=== PATIENT | male | born 1975 | race African-American/Black ===

== ENCOUNTER 2019-03-31 14:04 | Emergency (ER) | payer SELFPAY ==
[~2019-03-31] VITALS: Ht 172.7 cm; Wt 66.7 kg
[2019-03-31] MEDS ORDERED: LIDOCAINE PF 1% 5 ML (XYLOCAINE) AMP ONE (15:17)
[2019-03-31] MEDS ORDERED: BUPIVACAINE 0.5% 30 ML (SENSORCAINE) VIAL ONE (15:17)
--- NOTE | 2019-03-31 15:22 | Diagnostic Imaging Report ---
Indication: Left hand injury. COMPARISON: None. EXAMINATION: Three views of the left hand were obtained. FINDINGS: Nondisplaced angulated fracture of the distal 5th metacarpal. There is no intra-articular involvement. Soft tissue swelling is seen. No additional abnormality is seen. No foreign body. IMPRESSION: Distal 5th metacarpal fracture. Dictated by: Dictated on workstation # [id number]
[2019-03-31] MEDS ORDERED: HYDR-4226 PO (15:29)
[2019-03-31] MEDS ORDERED: LIDOCAINE 1% INJ 20 ML 20 ML VIAL INJ ONE (15:30)
[2019-03-31] MEDS ORDERED: BUPIVACAINE 0.5% 30 ML (SENSORCAINE) VIAL INJ ONE (15:30)
--- NOTE | 2019-03-31 15:30 | ED Upper Extremity ---
General Chief Complaint: Upper Extremity Stated Complaint: L HAND INJ Nursing Triage Note: PT AMBULATE TO [facility] WITH C/O LEFT HAND INJURY. PT STATES HE WAS WALKING UP STAIRS AND STUMBLED AND HIT HAND ON RAILING. PT REPORTS HE DID NOT HIT HIS HEAD. Nursing Sepsis Screen: No Definite Risk Source: patient Exam Limitations: no limitations History of Present Illness Date Seen by Provider: Mar 31, 2019 Time Seen by Provider: 14:00 Initial Comments To ER with left hand pain. This is over the knuckle. He fell while walking up the stairs. Onset: just prior to arrival Severity: moderate Pain/Injury Location: left 5th finger Method of Injury: fell Modifying Factors: Worse With Movement Allergies and Home Medications Allergies Coded Allergies: No Known Drug Allergies (Unverified , 03/31/19) Home Medications Hydrocodone/Acetaminophen 1 Each Tablet, 1 TAB PO Q4-6HR Prescribed by: KIRT LEONARD on 03/31/19 1529 Patient Home Medication List Home Medication List Reviewed: Yes Review of Systems Constitutional: see HPI EENTM: see HPI Respiratory: no symptoms reported Cardiovascular: no symptoms reported Genitourinary: no symptoms reported Musculoskeletal: see HPI Skin: no symptoms reported Psychiatric/Neurological: No Symptoms Reported Past Lzjlqct-Dwmzus-Wlsxzg Hx Patient Social History Alcohol Use: Regular Use Alcohol Beverage of Choice: Beer Recreational Drug Use: Yes Drug of Choice: POT Smoking Status: Current Everyday Smoker Type Used: Cigarettes 2nd Hand Smoke Exposure: Yes Recent Foreign Travel: No Contact w/Someone Who Travel: No Recent Infectious Disease Expo: No Recent Hopitalizations: No Physical Abuse: No Sexual Abuse: No Mistreated: No Fear: No Seasonal Allergies Seasonal Allergies: Yes Past Medical History Surgeries: Yes (BROKEN JAW) Respiratory: No Cardiac: No Neurological: No Genitourinary: No Gastrointestinal: No Musculoskeletal: Yes (BROKEN JAW) Fractures Endocrine: No HEENT: No Cancer: No Psychosocial: No Integumentary: Yes Eczema Blood Disorders: No Physical Exam Vital Signs Vital Signs - First Documented 03/31/19 03/31/19 14:08 16:15 Temp 37.1 Pulse 119 Resp 19 B/P (MAP) 135/90 (105) Pulse Ox 99 O2 Delivery Room Air Capillary Refill : Less Than 3 Seconds Height, Weight, BMI Height: '" Weight: lbs. oz. kg; 22.00 BMI Method: General Appearance: WD/WN, no apparent distress Respiratory: no respiratory distress, no accessory muscle use Shoulder: normal inspection, non-tender Elbow/Forearm: normal inspection, non-tender Wrist: Yes normal inspection, Yes non-tender Hand: Left, swelling Neurologic/Tendon: normal sensation, normal motor functions Neurologic/Psychiatric: alert, normal mood/affect, oriented x 3 Skin: normal color, warm/dry Progress/Results/Core Measures Results/Orders My Orders Orders - KIRT LEONARD APRN Hand, Left, 3 Views (03/31/19 14:19) Lidocaine 1% Inj 20 Ml (Xylocaine 1% Inj (03/31/19 15:30) Bupivacaine 0.5% Injection (Sensorcaine (03/31/19 15:30) Hand, Left, 2 Views (03/31/19 15:16) Bupivacaine 0.5% Injection (Sensorcaine (03/31/19 15:17) Lidocaine Pf 1% 5 Ml Injection (Xylocain (03/31/19 15:17) Hand, Left, 2 Views (03/31/19 15:59) Medications Given in ED Current Medications Medications Dose Ordered Sig/Ayush Route Start Time Stop Time Status Last Admin Dose Admin Bupivacaine HCl 3 ml ONCE ONCE INJ 03/31/19 15:30 03/31/19 15:31 DC 03/31/19 15:34 3 ML Lidocaine HCl 2 ml ONCE ONCE INJ 03/31/19 15:30 03/31/19 15:31 DC 03/31/19 15:34 2 ML Vital Signs/I&O 03/31/19 03/31/19 14:08 16:15 Temp 37.1 Pulse 119 81 Resp 19 B/P (MAP) 135/90 (105) 133/79 Pulse Ox 99 O2 Delivery Room Air Room Air Blood Pressure Mean: 105 POS Departure Communication (Admissions) Did a hematoma block with 2 mL of 1% lidocaine without epinephrine and 3 L of 0.5% bupivacaine without epinephrine. Impression Primary Impression: Metacarpal bone fracture Qualified Codes: S62.307A - Unspecified fracture of fifth metacarpal bone, left hand, initial encounter for closed fracture Disposition: 01 HOME, SELF-CARE Condition: Stable Departure-Patient Inst. Decision time for Depature: 15:28 Referrals: USAMA CURTIS,LOCAL PHYSICIAN (PCP) Primary Care Physician BANGJOSIAS ROBERTS MD, ROBERT F DO ZAFUTA, MICHAEL P MD Patient Instructions: Hand Fracture Add. Discharge Instructions: 1. Return to ER for any concerns 2. Follow-up with your doctor next week 3. Follow-up with one of the orthopedic surgeons listed. Call Monday to make an appointment to be seen within the next 2 or 3 weeks. Leave the splint on at all times until then. All discharge instructions reviewed with patient and/or famil y. Voiced understanding. Scripts Hydrocodone/Acetaminophen ([place] 5-325 Tablet) 1 Each Tablet 1 TAB PO Q4-6HR for Pain MDD 10 TABS for 7 Days, #10 TAB Prov: KIRT LEONARD APRN 03/31/19 KIRT LEONARD APRN Mar 31, 2019 15:30 POS
--- NOTE | 2019-03-31 16:03 | Diagnostic Imaging Report ---
INDICATION: Left hand pain, fracture. COMPARISON: 03/31/2019 at 3:11 PM. EXAMINATION: Two views of the left hand were obtained. FINDINGS: Stable distal 5th metacarpal fracture. There is no change in alignment or angulation. IMPRESSION: Stable 5th metacarpal fracture. Dictated by: Dictated on workstation # [id number]
[2019-03-31 16:15] VITALS: BP 133/79
--- NOTE | 2019-03-31 16:15 | Diagnostic Imaging Report ---
INDICATION: Post reduction. COMPARISON: None. EXAMINATION: Two post reduction views of the left hand were obtained. FINDINGS: Essentially unchanged angulation of the distal 5th metacarpal fracture. There is no displacement. IMPRESSION: Unchanged 5th metacarpal fracture. Dictated by: Dictated on workstation # [id number]
== END 2019-03-31 16:15 | disposition home or self-care (01) ==
LOC: ER 14:06
DX: S62.307A Unspecified fracture of fifth metacarpal bone, left hand, initial encounter for closed fracture (principal); F17.210 Nicotine dependence, cigarettes, uncomplicated; W22.8XXA Striking against or struck by other objects, initial encounter; W10.9XXA Fall (on) (from) unspecified stairs and steps, initial encounter
CPT/HCPCS: 29125; 73120; 73130

== ENCOUNTER 2022-08-02 11:44 | Emergency (ER) | payer OTHER ==
[~2022-08-02] VITALS: Ht 172.7 cm; Wt 68.0 kg
[~2022-08-02 11:44] MED LIST: HYDR-4226 PO
--- NOTE | 2022-08-02 11:57 | ED Lower Extremity ---
General Chief Complaint: Lower Extremity Stated Complaint: RT KNEE INJ AT HOME Nursing Triage Note: PT TO [facility] WITH COMPLAINT OF RIGHT KNEE PAIN. STATES GOT OUT OF BED THIS MORNING AND FELT LIKE HIS KNEE BLEW OUT. Source: patient Exam Limitations: no limitations (MYRON BRADLEY) History of Present Illness Date Seen by Provider: Aug 02, 2022 Time Seen by Provider: 11:56 Initial Comments Patient is a 47-year-old male who presents to the ED with right knee pain. Patient states this morning around 8:00 when he got up he stood up felt his right knee gave out landing on his back. Patient states he was having difficulty bearing weight on the right knee. Denies feeling a pop but does have pain to the medial side of the right knee. No history of previous fracture. Difficulty with full extension and flexion. Reports some mild swelling. Denies taking thing for pain at home. Denies of any back pain, head pain, loss of conscious, vomiting, diarrhea. (MYRON BRADLEY) Allergies and Home Medications Allergies Coded Allergies: No Known Drug Allergies (Unverified , 03/31/19) Patient Home Medication List Home Medication List Reviewed: Yes (MYRON BRADLEY) Hydrocodone/Acetaminophen (Hydrocodone/Acetaminophen 5 MG/325 MG TAB) 1 Each Tablet, 1 TAB PO Q4-6HR Prescribed by: KIRT LEONARD on 03/31/19 1529 Ibuprofen (Ibuprofen) 800 Mg Tablet, 800 MG PO Q8H PRN for PAIN Prescribed by: JAREN HORVATH on 08/02/22 1233 Review of Systems Constitutional: No chills, No diaphoresis, No malaise, No weakness EENTM: No ear pain, No blurred vision, No double vision Respiratory: No cough, No dyspnea on exertion, No short of breath Cardiovascular: No chest pain Gastrointestinal: No abdominal pain, No diarrhea, No nausea, No vomiting Genitourinary: No decreased output, No discharge Musculoskeletal: No back pain; joint pain, joint swelling Skin: No change in color, No change in hair/nails (MYRON BRADLEY) All Other Systems Reviewed Negative Unless Noted: Yes (MYRON BRADLEY) Past Sqnuxiz-Giifvu-Mukxvd Hx Patient Social History Tobacco Use?: Yes Tobacco type used: Cigarettes Use of E-Cig and/or Vaping dev: No Substance use?: No Alcohol Use?: No Pt feels they are or have been: No (MYRON BRADLEY) Seasonal Allergies Seasonal Allergies: Yes (MYRON BRADLEY) Past Medical History Surgeries: Yes (BROKEN JAW) Respiratory: No Cardiac: No Neurological: No Genitourinary: No Gastrointestinal: No Musculoskeletal: Yes (BROKEN JAW) Fractures Endocrine: No HEENT: No Cancer: No Psychosocial: No Integumentary: Yes Eczema Blood Disorders: No (MYRON BRADLEY) Physical Exam Vital Signs Vital Signs - First Documented 08/02/22 11:49 Temp 35.9 Pulse 105 Resp 20 B/P (MAP) 122/90 (101) Pulse Ox 98 O2 Delivery Room Air (JUDSON BARGER MD) Vital Signs Capillary Refill : Less Than 3 Seconds (MYRON BRADLEY) Height, Weight, BMI Height: '" Weight: lbs. oz. kg; 22.00 BMI Method: General Appearance: WD/WN, no apparent distress HEENT: PERRL/EOMI, normal ENT inspection, TMs normal, pharynx normal Neck: non-tender, full range of motion, supple, normal inspection Cardiovascular: regular rate, rhythm, no edema, no gallop, no JVD Respiratory: chest non-tender, lungs clear, normal breath sounds, no respiratory distress, no accessory muscle use Gastrointestinal: normal bowel sounds, non tender, soft, no organomegaly Back: normal inspection Knees: right knee pain (Right medial knee tenderness), right knee soft tissue tenderness, right knee swelling, right knee other (No laxity or pain with valgus or varus stress. 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 Patient with a fall while getting out of the bed. Concerning that he hyperextended his knee while jumping off the bed. No specific laxity noted on exam but did have tenderness to the right patella medial knee. Due to mechanism of injury x-ray was ordered to rule out acute fracture. X-ray was negative for acute fracture. Patient was given a dose of hydrocodone to help manage his pain at this time. Ice was applied. Discussed Jonathan wrap, knee brace for support. Discussed range of motion exercises at home. Will discharge with ibuprofen and discussed ice regimen for at home. Recommend orthopedic outpatient follow-up in 1 to 2 weeks for further evaluation as needed. Further evaluation may be needed with MRI. Suspect more of a knee sprain at this time. Return precautions were discussed with patient. (MYRON BRADLEY) Impression Primary Impression: Sprain of knee Disposition: HOME, SELF-CARE Condition: Stable Departure-Patient Inst. Decision time for Depature: 12:32 (MYRON BRADLEY) Referrals: NO,LOCAL PHYSICIAN (PCP) Primary Care Physician YASMEEN SOLIS MD Patient Instructions: Knee Sprain ED Add. Discharge Instructions: Recommend ice, Jonathan wrap or knee brace for support, range of motion exercise at home. If continued pain over the next 2 to 3 weeks follow-up outpatient [facility] with orthopedic for further evaluation. All discharge instructions reviewed with patient and/or family. Voiced understanding. Scripts Ibuprofen (Ibuprofen) 800 Mg Tablet 800 MG PO Q8H PRN for PAIN, #20 TAB Prov: MYRON BRADLEY 08/02/22 Work/School Note: Work Release Form Date Seen in the Emergency Department: Aug 02, 2022 Return to Work: Aug 05, 2022 ATTENDING PHYSICIAN NOTE: I was physically present as attending physician in the emergency department during the care of this patient, but I was not directly involved in the decision making or delivery of care for this patient. (JUDSON BARGER MD) MYRON BRADLEY Aug 02, 2022 11:57 JUDSON BARGER MD Aug 03, 2022 09:06
[2022-08-02] MEDS ORDERED: HYDROcodone/APAP 5 MG/325 MG (LORTAB) TAB PO ONE (12:00)
--- NOTE | 2022-08-02 12:25 | Diagnostic Imaging Report ---
HISTORY: Right knee pain after injury. TECHNIQUE: 3 views of the right knee. COMPARISON: None FINDINGS: No acute fracture seen in the right knee. Alignment is normal. Joint spaces are preserved. No significant joint effusion is seen. There is mild cortical thickening at the medial side of the proximal tibial diaphysis, appears chronic and may be from remote injury. IMPRESSION: 1. No acute osseous abnormalities seen in the right knee. If there is concern for internal arrangement consider nonemergent MRI to further evaluate. Dictated by: Dictated on workstation # [id number]
[2022-08-02] MEDS ORDERED: IBUP-1780 PO (12:33)
[2022-08-02 12:40] VITALS: BP 118/75
== END 2022-08-02 12:40 | disposition home or self-care (01) ==
LOC: EDUNIT# 11:44 → ER 11:46
DX: S83.91XA Sprain of unspecified site of right knee, initial encounter (principal); F17.210 Nicotine dependence, cigarettes, uncomplicated; W18.30XA Fall on same level, unspecified, initial encounter
CPT/HCPCS: 73562

== ENCOUNTER 2022-08-16 06:23 | Emergency (ER) | payer OTHER ==
[~2022-08-16] VITALS: Ht 172.7 cm; Wt 68.0 kg
[~2022-08-16 06:23] MED LIST changes: +IBUP-1780 PO
[2022-08-16 06:28] VITALS: BP 129/87
--- NOTE | 2022-08-16 06:35 | ED Upper Extremity ---
General Stated Complaint: RIGHT WRIST INJURY Source: patient Exam Limitations: no limitations History of Present Illness Date Seen by Provider: Aug 16, 2022 Time Seen by Provider: 06:25 Initial Comments 47-year-old male is eoltt-uomm-zprnnlif with no pertinent past medical history coming in after he slipped out of the shower, landing on his right outstretched hand. Having right wrist pain that is constant, moderate, aching. Worse with movement, better with rest. He took Excedrin prior to coming which helped a little bit. This occurred over an hour and a half prior to arrival. Denies any weakness or numbness. Otherwise denies any other acute complaints including he did not hit his head, did not pass out, no neck or back pain, and does not take any blood thinners. Allergies and Home Medications Allergies Coded Allergies: No Known Drug Allergies (Unverified , 03/31/19) Patient Home Medication List Home Medication List Reviewed: Yes Hydrocodone/Acetaminophen (Hydrocodone/Acetaminophen 5 MG/325 MG TAB) 1 Each Tablet, 1 TAB PO Q4-6HR Prescribed by: KIRT LEONARD on 03/31/19 1529 Ibuprofen (Ibuprofen) 800 Mg Tablet, 800 MG PO Q8H PRN for PAIN Prescribed by: JAREN HORVATH on 08/02/22 1233 Review of Systems Constitutional: No fever Respiratory: no symptoms reported Cardiovascular: no symptoms reported Musculoskeletal: see HPI Skin: no symptoms reported Psychiatric/Neurological: No Symptoms Reported Past Jttednp-Snznwl-Fiudjn Hx Patient Social History Tobacco Use?: Yes Tobacco type used: Cigarettes Seasonal Allergies Seasonal Allergies: Yes Past Medical History Surgeries: Yes (BROKEN JAW) Respiratory: No Cardiac: No Neurological: No Genitourinary: No Gastrointestinal: No Musculoskeletal: Yes (BROKEN JAW) Fractures Endocrine: No HEENT: No Cancer: No Psychosocial: No Integumentary: Yes Eczema Blood Disorders: No Physical Exam Vital Signs Capillary Refill : Height, Weight, BMI Height: '" Weight: lbs. oz. kg; 22.00 BMI Method: General Appearance: WD/WN, no apparent distress HEENT: PERRL/EOMI, normal ENT inspection, pharynx normal Neck: non-tender, full range of motion, supple, normal inspection Cardiovascular: regular rate, rhythm Respiratory: chest non-tender, lungs clear, normal breath sounds, no respiratory distress, no accessory muscle use Gastrointestinal: normal bowel sounds, non tender, soft Back: normal inspection, no vertebral tenderness Shoulder: non-tender, no evidence of injury, normal ROM Elbow/Forearm: normal inspection, non-tender, no evidence of injury, normal ROM Wrist: Yes pain (Pain along the distal radius, no scaphoid tenderness, normal neurovascular exam, including specific testing of the radial nerve, median nerve, and ulnar nerve, normal distal capillary refill), Yes soft tissue tenderness, Yes swelling Hand: normal inspection, non-tender, no evidence of injury, normal ROM Neurologic/Tendon: normal sensation, normal motor functions, normal tendon functions Neurologic/Psychiatric: no motor/sensory deficits, alert, normal mood/affect Skin: normal color, warm/dry Progress/Results/Core Measures Results/Orders My Orders Orders - MYRON DREW MD Wrist, Right, 3 Views Or More (08/16/22 06:31) Ibuprofen Tablet (Motrin Tablet) (08/16/22 06:45) Progress Progress Note : Progress Note 47-year-old male with above history coming in due to right wrist pain after falling. ABCs were intact and vitals were stable on presentation. Physical exam with right distal radius pain. He is neurovascularly intact. He was given ibuprofen here for pain control. X-ray of the right wrist ordered and interpreted by me showing no fracture or dislocation. I reviewed the radiologist read as well. He is [place] head and cervical spine rule negative and does not need advanced imaging. The patient was given a universal wrist splint here. Prescription sent for ibuprofen. I believe he is otherwise stable for discharge with outpatient follow-up with orthopedics. He was sent home with strict return precautions Diagnostic Imaging Diagonstic Imaging: Xray (right wrist) Departure Impression Primary Impression: Right wrist sprain Qualified Codes: S63.501A - Unspecified sprain of right wrist, initial en counter Disposition: 01 HOME, SELF-CARE Condition: Stable Departure-Patient Inst. Decision time for Depature: 06:50 Referrals: NO,LOCAL PHYSICIAN (PCP) Primary Care Physician YASMEEN FARR MD Patient Instructions: Wrist Sprain ED Add. Discharge Instructions: Fortunately were not seeing anything broken or dislocated on the x-ray. Unfortunately, you do have a wrist sprain similar to your knee. This can take anywhere from 6 weeks to fully heal. Use the wrist splint we gave you for co mfort. You can take it off to shower. Follow-up with orthopedics in the next 2 weeks if you are not improving. Dr. Farr is a bone doctor, and his number is in this paperwork if you need to make an appointment for your wrist or knee. Prescription strength ibuprofen was sent to your pharmacy. Scripts Ibuprofen (Ibuprofen) 600 Mg Tablet 600 MG PO Q6H PRN for PAIN-MILD for 5 Days, #20 TAB Prov: MYRON DREW MD 08/16/22 Work/School Note: Work Release Form Date Seen in the Emergency Department: Aug 16, 2022 Return to Work: Aug 17, 2022 Restrictions: No Restrictions MYRON DREW MD Aug 16, 2022 06:35
[2022-08-16] MEDS ORDERED: IBUP-1773 PO (06:41)
[2022-08-16] MEDS ORDERED: IBUPROFEN 600 MG (MOTRIN) TAB PO ONE (06:45)
--- NOTE | 2022-08-16 07:52 | Diagnostic Imaging Report ---
EXAMINATION: Right wrist radiographs, 3 views. COMPARISON: None. HISTORY: 47-year-old male, fall. Right wrist pain. FINDINGS: There is no identified acute fracture. There is no identified radiopaque foreign body. There is no identified subluxation or dislocation. The joint spaces appear well-preserved. There is some irregularity of the contour of the fifth metacarpal base which could relate to prior injury. IMPRESSION: 1. No radiographically apparent acute bony abnormality of the right wrist. Dictated by: Dictated on workstation # [id number]
== END 2022-08-16 06:48 | disposition home or self-care (01) ==
LOC: EDUNIT# 06:23 → ER 06:25
DX: S63.501A Unspecified sprain of right wrist, initial encounter (principal); F17.210 Nicotine dependence, cigarettes, uncomplicated; W18.2XXA Fall in (into) shower or empty bathtub, initial encounter; Y93.E1 Activity, personal bathing and showering
CPT/HCPCS: 73110